=== PATIENT | female | born 1950 | race Caucasian/White ===

== ENCOUNTER 2017-06-30 09:06 | Outpatient (CLI) | payer MEDICARE, BC ==
--- NOTE | 2017-06-30 10:13 | MMO ---
BILATERAL SCREENING MAMMOGRAMS: DATE: 06/30/17 COMPARISON: Reference made to prior mammograms dating back to January 2010. This patient's mammogram was interpreted with the assistance of computer-aided detection. FINDINGS: There is heterogeneously dense breast parenchyma, limiting the sensitivity of mammography and could obscure underlying pathology. There is stable, benign punctate calcification right breast. No new do minant mass, suspicious clustering of microcalcification, or architectural distortion. IMPRESSION: BIRADS 2: Benign Finding(s) Annual screening mammography is recommended. POS: LANCE
== END 2017-06-30 09:07 | disposition home or self-care (01) ==
LOC: MAMMO 09:06
PROVIDERS: ATTEND Internal Medicine
DX: Z12.31 Encounter for screening mammogram for malignant neoplasm of breast (principal)
CPT/HCPCS: 77067; G0202

== ENCOUNTER 2019-01-26 07:31 | Day surgery (SDC) | payer MEDICARE, BC ==
[2019-01-25 13:19] VITALS: BMI 24.2
--- NOTE | 2019-01-26 08:18 | HP ---
HISTORY OF PRESENT ILLNESS: This is a 68-year-old female comes for a colonoscopy for colon cancer screening. The patient has no specific GI symptoms. She has no history of hematochezia. No family history of colon cancer. ALLERGIES: NONE. MEDICAL ILLNESS: 1. Hypothyroidism. 2. Hyperlipidemia. SOCIAL HISTORY: The patient does not smoke or drink alcohol. PHYSICAL EXAMINATION: VITAL SIGNS: Pulse is 70 and blood pressure 130/70. HEENT: Conjunctivae are clear. CARDIOVASCULAR SYSTEM: First and second heart sounds normal. LUNGS: Clear to auscultation. ABDOMEN: Soft. No organomegaly. No tenderness. No masses. EXTREMITIES: Reveal no edema. ADMITTING DIAGNOSIS: A 68-year-old female comes for a colonoscopy for colon cancer screening. Job ID: [id number]
[2019-01-26] MEDS ORDERED: Fentanyl 100 MCG/2 ML VIAL ONE (08:19)
[2019-01-26] MEDS ORDERED: PROPOFOL 200 MG/20 ML VIAL ONE (15:45)
[2019-01-26] MEDS ORDERED: Lidocaine 1% PF 5 ML VIAL ONE (15:45)
--- NOTE | 2019-01-26 17:25 | OP ---
DATE OF PROCEDURE: 01/26/2019 PROCEDURE PERFORMED: Colonoscopy. PREOPERATIVE DIAGNOSIS: Colon cancer screening. POSTOPERATIVE DIAGNOSES: 1. Sigmoid diverticular disease. 2. Redundant colon. 3. Large hemorrhoids. DESCRIPTION OF PROCEDURE: The patient was placed on the left lateral position and was given sedation by Anesthesia Department. A rectal exam was done before the scope was advanced into the rectum. No lesions felt on rectal exam. She did have external hemorrhoids. A Pentax video colonoscope was introduced into the rectum and advanced all the way to cecum. The patient had redundant, tortuous colon. The mucosa appears normal throughout the colon with normal vascular pattern. In the appendiceal orifice, ileocecal valve, and cecum, no pathology seen. Withdrawal from the cecum to ascending colon, hepatic flexure, transverse colon, no pathology seen. In the splenic flexure, descending colon, no pathology seen. The sigmoid colon showed scattered diverticular disease. Retroflexion of scope in the rectum showed hemorrhoids. DISCHARGE PLANNING: A 68-year-old female, referred to me Dr. Joaquin Painter for a colonoscopy for cancer screening. The patient had a colonoscopy and had no pathology. DISCHARGE RECOMMENDATIONS: 1. The patient advised to call me if she develops abdominal pain, hematochezia. 2. High-fiber diet. 3. No more screening colonoscopy necessary as she will be 78 in 10 years time. Job ID: [id number]
== END 2019-01-26 11:43 | disposition home or self-care (01) ==
LOC: SDC 07:31
PROVIDERS: ATTEND Internal Medicine Gastroenterology
PROC: 0DJD8ZZ Inspection of Lower Intestinal Tract, Via Natural or Artificial Opening Endoscopic (ICD-10-PCS; principal; 2019-01-26)
DX: Z12.11 Encounter for screening for malignant neoplasm of colon (principal); K57.30 Diverticulosis of large intestine without perforation or abscess without bleeding; K63.89 Other specified diseases of intestine; K64.9 Unspecified hemorrhoids; E78.5 Hyperlipidemia, unspecified; E03.9 Hypothyroidism, unspecified; Z79.899 Other long term (current) drug therapy
CPT/HCPCS: J3010

== ENCOUNTER 2019-08-23 14:43 | Outpatient (CLI) | payer MEDICARE, BC ==
--- NOTE | 2019-08-23 17:35 | MMO ---
Bilateral MAMMO Bilat Screen [facility]. CLINICAL HISTORY: Patient is 69 years old and is seen for screening. The patient has no family history of breast cancer. The patient has no personal history of cancer. VIEWS: The views performed were: bilateral craniocaudal with tomosynthesis and bilateral mediolateral oblique with tomosynthesis. FILMS COMPARED: The present examination has been compared to prior imaging studies performed at [facility] on 04/15/2011, 12/10/2012, 01/25/2015 and 06/30/2017. This study has been interpreted with the assistance of computer-aided detection. MAMMOGRAM FINDINGS: There are scattered fibroglandular densities. There are no suspicious masses, suspicious calcifications, or new areas of architectural distortion. IMPRESSION: THERE IS NO MAMMOGRAPHIC EVIDENCE OF MALIGNANCY. A ROUTINE FOLLOW-UP MAMMOGRAM IN 1 YEAR IS RECOMMENDED. THE RESULTS OF THIS EXAM WERE SENT TO THE PATIENT. ACR BI-RADS Category 1 - Negative MAMMOGRAPHY NOTE: 1. A negative mammogram report should not delay a biopsy if a dominant of clinically suspicious mass is present. 2. Approximately 10% to 15% of breast cancers are not detected by mammography. 3. Adenosis and dense breasts may obscure an underlying neoplasm. Reported by: PAULINO ENAMORADO MD Electonically Signed: [id number]
== END 2019-08-23 14:44 | disposition home or self-care (01) ==
LOC: BICMAMMO 14:43
PROVIDERS: ATTEND Internal Medicine
DX: Z12.31 Encounter for screening mammogram for malignant neoplasm of breast (principal)
CPT/HCPCS: 77063; 77067

== ENCOUNTER 2021-06-23 00:07 | Emergency (ER) | payer MEDICARE, BC ==
[2021-06-23 01:27] LABS: #Eosinphils 0.2 thou/uL (0.0-0.7); #Lymphocytes 2.2 thou/uL (1.20-3.40); #Monocytes 0.5 thou/uL (0.11-0.59); #Neutrophils 4.2 thou/uL (1.40-6.50); %Basophils 0.7 % (0.0-1.0); %Eosinophils 2.7 % (0.0-10.0); %Lymphocytes 30.8 % (21.0-51.0); %Monocytes 7.3 % (0.0-10.0); %Neutrophils 58.5 % (42.0-75.0); Hemoglobin 11.5 g/dL (12.0-16.0); Mean Corpuscular HGB CONC 33.2 g/dL (32.0-36.0); Mean Corpuscular Volume 90.2 fL (78.0-98.0); Mean Platelet Volume 7.9 fL (7.4-10.4); Platelet Count 256 thou/uL (130-400); RBC Distribution Width 11.8 % (11.5-14.5); Red Blood Cell (RBC) Count 3.84 mill/uL (4.20-5.40); White Blood Cell (WBC) Count 7.2 thou/uL (4.8-10.8)
[2021-06-23 01:33] LABS: ALT (SGPT) 22 U/L (8-55); AST (SGOT) 25 U/L (5-34); Albumin 3.9 g/dL (3.4-4.8); Alkaline Phosphatase 58 U/L (40-110); Anion Gap 12 mmol/L (10-20); BUN (Urea Nitrogen) 11 mg/dL (9.8-20.1); Bilirubin, Total 0.6 mg/dL (0.2-1.2); Calc. Creatinine Clearance 0 mL/min (70-130); Calcium 9.3 mg/dL (7.8-10.44); Carbon Dioxide 26 mmol/L (23-31); Chloride 104 mmol/L (98-107); Globulin 2.6 g/dL (2.4-3.5); Glucose 96 mg/dL (80-115); Potassium 3.8 mmol/L (3.5-5.1); Protein, Total 6.5 g/dL (5.8-8.1); Sodium 138 mmol/L (136-145)
== END 2021-06-23 02:17 | disposition home or self-care (01) ==
LOC: ERS 00:07
DX: R10.13 Epigastric pain (principal)
CPT/HCPCS: 36415; 71045; 80053; 84484; 85025; 93005

== ENCOUNTER 2021-07-09 01:10 | Inpatient (IN) | payer MEDICARE, BC ==
[2021-07-09 02:11] LABS: #Basophils 0.1 thou/uL (0.0-0.2); #Eosinphils 0.1 thou/uL (0.0-0.7); #Lymphocytes 1.3 thou/uL (1.20-3.40); #Monocytes 0.7 thou/uL (0.11-0.59); #Neutrophils 6.2 thou/uL (1.40-6.50); %Basophils 0.7 % (0.0-1.0); %Eosinophils 0.8 % (0.0-10.0); %Lymphocytes 15.9 % (21.0-51.0); %Monocytes 8.1 % (0.0-10.0); %Neutrophils 74.5 % (42.0-75.0); Mean Corpuscular HGB CONC 34.1 g/dL (32.0-36.0); Mean Corpuscular Hemoglobin 30.3 pg (27.0-31.0); Mean Corpuscular Volume 88.9 fL (78.0-98.0); Mean Platelet Volume 7.7 fL (7.4-10.4); Platelet Count 249 thou/uL (130-400); RBC Distribution Width 11.4 % (11.5-14.5); Red Blood Cell (RBC) Count 3.63 mill/uL (4.20-5.40); White Blood Cell (WBC) Count 8.3 thou/uL (4.8-10.8)
[2021-07-09 02:28] LABS: ALT (SGPT) 21 U/L (8-55); AST (SGOT) 23 U/L (5-34); Albumin 3.7 g/dL (3.4-4.8); Alkaline Phosphatase 60 U/L (40-110); Anion Gap 12 mmol/L (10-20); BUN (Urea Nitrogen) 6 mg/dL (9.8-20.1); Bilirubin, Total 0.7 mg/dL (0.2-1.2); Calc. Creatinine Clearance 0 mL/min (70-130); Calcium 8.9 mg/dL (7.8-10.44); Carbon Dioxide 24 mmol/L (23-31); Chloride 99 mmol/L (98-107); Globulin 2.4 g/dL (2.4-3.5); Glucose 111 mg/dL (80-115); Potassium 3.9 mmol/L (3.5-5.1); Protein, Total 6.1 g/dL (5.8-8.1); Sodium 131 mmol/L (136-145)
[2021-07-09 03:27] LABS: Bacteria/HPF None Seen HPF (None Seen); Bilirubin Negative (Negative); Blood, Urine Negative (Negative); Clarity Turbid (Clear); Glucose, Urine (Dipstick) Normal (Negative); Ketone, Urine Trace mg/dL (Negative); Leukocyte 75 Leu/uL (Negative); Nitrite Negative (Negative); Protein, Urine (Dipstick) Negative (Neg-Trace); RBC/HPF 0-3 HPF (0-3); Specific Gravity, Urine 1.006 (1.002-1.036); Squamous Epithelial None Seen HPF (0-3); Urobilinogen Normal mg/dL (Less than 2); WBC/HPF 0-3 HPF (0-3); pH, Urine 7.5 (5.0-9.0)
[2021-07-09] MEDS ORDERED: Bacitracin 1 PK ONE (04:00)
[2021-07-09] MEDS ORDERED: Acetaminophen 325 MG TAB PO PRN (05:24)
[2021-07-09] MEDS ORDERED: Acetaminophen 650 MG Suppository PR PRN (05:24)
[2021-07-09] MEDS ORDERED: Ondansetron ODT 4 MG TAB PO PRN (05:24)
[2021-07-09] MEDS ORDERED: Ondansetron PF 4 MG/2 ML Vial IVP PRN (05:24)
[2021-07-09 06:41] LABS: Troponin I Less than 0.010 ng/mL (< 0.028)
[2021-07-09] MEDS ORDERED: Sodium Chloride 0.9% 1,000 ML IV SCH (06:45)
[2021-07-09 06:50] VITALS: BMI 23.3
[2021-07-09 07:39] LABS: SARS-CoV-2 NAA Rapid Test Not Detected (NotDetected)
[2021-07-09 08:42] LABS: Troponin I 0.018 ng/mL (< 0.028)
[2021-07-09] MEDS: PARoxetine 20 MG TAB PO SCH ×2 (12:31→12:41)
[2021-07-09] MEDS ORDERED: Famotidine 20 MG TAB PO SCH (21:00)
[2021-07-09] MEDS: Atorvastatin Calcium 40 MG TAB PO SCH (21:01)
[2021-07-10 05:03] LABS: #Basophils 0.1 thou/uL (0.0-0.2); #Eosinphils 0.2 thou/uL (0.0-0.7); #Lymphocytes 1.8 thou/uL (1.20-3.40); #Monocytes 0.8 thou/uL (0.11-0.59); %Basophils 0.6 % (0.0-1.0); %Lymphocytes 20.2 % (21.0-51.0); %Neutrophils 68.1 % (42.0-75.0); Hemoglobin 10.8 g/dL (12.0-16.0); Mean Corpuscular HGB CONC 33.7 g/dL (32.0-36.0); Mean Corpuscular Hemoglobin 29.5 pg (27.0-31.0); Mean Corpuscular Volume 87.7 fL (78.0-98.0); Mean Platelet Volume 8.4 fL (7.4-10.4); Platelet Count 255 thou/uL (130-400); RBC Distribution Width 11.5 % (11.5-14.5); Red Blood Cell (RBC) Count 3.65 mill/uL (4.20-5.40); White Blood Cell (WBC) Count 8.8 thou/uL (4.8-10.8)
[2021-07-10 05:22] LABS: Anion Gap 11 mmol/L (10-20); BUN (Urea Nitrogen) 6 mg/dL (9.8-20.1); Calc. Creatinine Clearance 90 mL/min (70-130); Calcium 8.6 mg/dL (7.8-10.44); Carbon Dioxide 24 mmol/L (23-31); Chloride 99 mmol/L (98-107); Glucose 96 mg/dL (80-115); Potassium 3.9 mmol/L (3.5-5.1); Sodium 130 mmol/L (136-145)
[2021-07-10] MEDS: Levothyroxine Sodium 100 MCG TAB PO SCH (05:35)
[2021-07-10] MEDS: PARoxetine 20 MG TAB PO SCH (08:58)
[2021-07-10] MEDS ORDERED: Iopamidol-370 76% 500 ML 1 ML ONE (16:11)
[2021-07-10] MEDS: Atorvastatin Calcium 40 MG TAB PO SCH (20:12)
[2021-07-10] MEDS: Enoxaparin Sodium 40 MG/0.4 ML SYRINGE SC SCH ×2 (20:12→20:17)
[2021-07-10] MEDS ORDERED: Famotidine 20 MG TAB PO SCH (21:00)
[2021-07-10] MEDS ORDERED: Ibuprofen 800 MG TAB PO SCH (23:00)
[2021-07-11] MEDS: Levothyroxine Sodium 100 MCG TAB PO SCH (05:05)
[2021-07-11] MEDS: PARoxetine 20 MG TAB PO SCH (09:19)
[2021-07-11 11:37] VITALS: TEMP 98.6
[2021-07-11 15:09] VITALS: BP 137/63
== END 2021-07-11 15:30 | disposition home or self-care (01) | DRG 312 ==
LOC: ERS 01:10 → ERHOLD 04:51 → 2NO 11:50 → OBSVTOIN 07-10 15:21
PROVIDERS: ADMIT Student in an Organized Health Care Education/Training Program; ATTEND Family Medicine
PROC: 0HQ0XZZ Repair Scalp Skin, External Approach (ICD-10-PCS; principal; 2021-07-10)
DX: I95.2 Hypotension due to drugs (principal); Z20.822 Contact with and (suspected) exposure to COVID-19; D64.9 Anemia, unspecified; F41.9 Anxiety disorder, unspecified; G47.00 Insomnia, unspecified; E03.9 Hypothyroidism, unspecified; G43.909 Migraine, unspecified, not intractable, without status migrainosus; E78.5 Hyperlipidemia, unspecified; R12 Heartburn; S01.01XA Laceration without foreign body of scalp, initial encounter; X58.XXXA Exposure to other specified factors, initial encounter; T43.225A Adverse effect of selective serotonin reuptake inhibitors, initial encounter; Z79.890 Hormone replacement therapy; Z79.899 Other long term (current) drug therapy
CPT/HCPCS: 12002; 36415; 70450; 70551; 71045; 71275; 72125; 80048; 80053; 81003; 81015; 84484; 85025; 85379; 93005; 93306; G0378; J1650; U0002